=== PATIENT | female | born 1975 | race Caucasian/White ===

== ENCOUNTER 2024-12-15 11:53 | Emergency (ER) | payer BC, SELFPAY ==
[2024-12-15 11:54] VITALS: BMI 31.1
[2024-12-15 12:20] VITALS: BP 157/93; PULSE 92; RESP 18; TEMP 36.6; O2SAT 98; BMI 31.1
--- NOTE | 2024-12-15 12:25 | XR_ITS ---
Examination: CT brain head without contrast. 2-D sagittal coronal reconstructions Date and time of exam:December 15, 2024 1237 hours INDICATIONS: Generalized head pain dizziness facial numbness beginning today CTDI: vol (mGy):53.2 DLP: (mGycm):1098 Technique: Multiple CT axial sections of the brain have been obtained, 5 mm slice thickness. Contrast has not been administered. 2-D sagittal, coronal reconstructions have been obtained Low dose protocols were performed. One or more of the following dose reduction techniques were used; automated exposure control, adjustment of the mA and/or KV according to patient size, use of iterative reconstruction technique. Findings: No significant ventricular enlargement. Intra-axial or extra-axial hemorrhage density is not seen. No mass effect or midline shift Basal cisterns are not remarkable. Fourth ventricle is midline. Cranial vault intact. Impression: Negative for acute hemorrhage, mass effect or midline shift As clinically warranted, MRI brain without contrast follow-up would best assess for demyelinating disease, acute ischemic change
--- NOTE | 2024-12-15 12:26 | EKG_ITS ---
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
--- NOTE | 2024-12-15 12:26 | XR_ITS ---
Examination: PA lateral chest 2 views TECHNIQUE: Upright PA lateral chest 2 views Exam date and time: December 15, 2024 1257 hours INDICATIONS: Chest pain today FINDINGS: Normal heart size. No pneumonia or pulmonary edema. The osseous structures are intact IMPRESSION: No pneumonia or pulmonary edema
--- NOTE | 2024-12-15 12:26 | PD.EDRME ---
Rapid Medical Screening Exam RME Arrival date/time: 12/15/24 11:53 49-year-old female presents to the emergency department today for complaints of episode of being unable to speak patient reports currently she feels better Chief Complaint: General Adult/Misc Complain Vital signs: Vital Signs Temperature 97.8 F 12/15/24 12:20 Pulse Rate 92 12/15/24 12:20 Respiratory Rate 18 12/15/24 12:20 Blood Pressure 157/93 H 12/15/24 12:20 Pulse Oximetry (%) 98 12/15/24 12:20
[2024-12-15 12:56] LABS: Basophils % (Auto) 0 % (0-2.5); Eosinophils % (Auto) 0 % (0-10); Hematocrit 42.3 % (36.0-46.0); Hemoglobin 14.2 g/dL (12.0-16.0); Immature Granulocytes % (Auto) 1 % (0-0); Immature Granulocytes Auto 0.07 Thou/mm3 (0.00-0.00); Lymphocytes # (Auto) 0.9 Thou/mm3 (1.0-4.8); Lymphocytes % (Auto) 6 % (10-50); Mean Corpuscular HGB Conc 33.6 g/dl (31.0-37.0); Mean Corpuscular Hemoglobin 30.7 pg (25.0-35.0); Mean Corpuscular Volume 92 fL (80-100); Monocytes # (Auto) 0.3 Thou/mm3 (0.0-0.8); Monocytes % (Auto) 2 % (0-12); Neutrophils # (Auto) 14.2 Thou/mm3 (1.8-7.7); Neutrophils % (Auto) 92 % (37-80); Nucleated Red Blood Cell % 0 /100 WBC (0); Platelet Count 219 Thou/mm3 (140-440); RDW Standard Deviation 43.9 fL (36.4-46.3); Red Blood Count 4.62 Miln/mm3 (4.00-5.20); White Blood Count 15.5 Thou/mm3 (3.6-11.0)
[2024-12-15 13:23] LABS: Alanine Aminotransferase 13 U/L (10-49); Albumin/Globulin Ratio 1.9 (1.2-2.2); Alkaline Phosphatase 61 U/L (46-116); Anion Gap 11 (7-16); Aspartate Amino Transferase 23 U/L (0-34); BUN/Creatinine Ratio 22 Ratio (12-20); Bilirubin,Total 0.6 mg/dL (0.3-1.2); Blood Urea Nitrogen 20 mg/dL (9-23); Calcium 9.3 mg/dL (8.3-10.6); Calcium (Corrected) 9.3 mg/dL (8.5-10.1); Carbon Dioxide 21.4 mMol/L (20.0-31.0); Chloride 103 mMol/L (98-107); Creatinine (Component) 0.9 mg/dL (0.6-1.3); Estimated Creatinine Clearance 104.4 mL/min (>60); Globulin 2.7 gm/dL (2.3-3.5); Glucose 386 mg/dL (74-106); Osmolality,Calculated 288 (275-295); Potassium 4.9 mMol/L (3.4-5.1); Sodium 135 mMol/L (136-145); Total Protein 7.7 gm/dL (5.7-8.2); Troponin I < 0.002 ng/mL (0.0-0.045); eGFR > 60 See Note
[2024-12-15 16:14] LABS: HCG Qualitative,Urine Negative
[2024-12-15 16:29] VITALS: BP 147/84; PULSE 87; RESP 17; TEMP 36.7; O2SAT 96
--- NOTE | 2024-12-15 16:34 | PD.EDADULT ---
ED General RME/HPI General Chief complaint: General Adult/Misc Complain Stated complaint: UNABLE TO TALK AT WORK, TALKING NOW Arrival date/time: 12/15/24 11:53 Limitations: no limitations RME / HPI RME / HPI narrative: 12/15/24 11:53 49-year-old female presents to the emergency department today for complaints of episode of being unable to speak patient reports currently she feels better DR. FONTANEZ MAIN ED EVALUATION: 49 year old female with history of diabetes currently on Ozempic presents to the ED for evaluation of suddenly feeling hot, sweaty, light headed, and felt near syncope while at work today. Accompanied difficulty talking which has since resolved. Denies losing consciousness. Patient mentioned she had experienced similar symptoms several days ago, lasting only momentarily that resolved on its own. Patient additionally reports she has been on a strict diet eating only meats, eggs, and cheese. Does not feel she is drinking enough fluids. Patient denies fevers, chest pain, cough, shortness of breath, abdominal pain, nausea, vomiting, diarrhea, or urinary symptoms. Related Data Home Medications ?Medication ?Instructions ?Recorded ?Confirmed metformin 1,000 mg tablet PO QDAC #0 tabs 03/22/14 (Glucophage) rosuvastatin 5 mg tablet (Crestor) PO QDAY #0 tabs 03/22/14 Allergies Allergy/AdvReac Type Severity Reaction Status Date / Time No Known Allergies Allergy Verified 12/15/24 11:59 Review of Systems Review of Systems Narrative Review of Systems: GEN: No fever, no chills, no weight loss, +feeling hot and faint EYES: No discharge, no visual changes, no pain HEENT: No ear pain, no congestion, no sore throat PULM: No shortness of breath, no cough, no congestion CV: No chest pain, no dyspnea on exertion, no palpitations GI: No nausea, no vomiting, no diarrhea, no pain, no constipation : No frequency, no urgency, no dysuria MUSC/SKEL: No joint pain, no back pain SKIN: No rash NEURO: +suddenly had trouble with speech. No weakness, no headache Past Medical History Social History SMOKING STATUS: Never smoker ED Exam General Limitations: Present no limitations General appearance: Present alert, obese and other (Anxious) Head Head exam: Present atraumatic, normocephalic and normal inspection Eye Eye exam: Present PERRL, EOMI and other (mild exophthalmos) ENT ENT exam: Present normal exam, normal oropharynx and mucous membranes moist Neck Neck exam: Present normal inspection, full ROM and trachea midline Chest Chest inspection: Present normal inspection and symmetric chest wall rise Respiratory Respiratory exam: Present normal lung sounds bilaterally Cardiovascular Cardiovascular exam: Present regular rate, normal rhythm and normal heart sounds Abdominal Exam Abdominal exam: Present soft and normal bowel sounds Extremities Exam Extremities exam: Present normal inspection and full ROM Back Exam Back exam: Present normal inspection and full ROM Neurological Exam Neurological exam: Present alert, oriented X3 and CN II-XII intact Psychiatric Psychiatric exam: Present normal affect and normal mood Skin Skin exam: Present warm, dry, intact and normal color Course Quality Measures none Orders Category Date Time Status EKG (ED ONLY) *Do not use* NOW Care 12/15/24 12:[address] head/brain wo con Stat Exams 12/15/24 12:25 Completed EKG (ED Only) Stat Exams 12/15/24 12:26 Draft XR chest 2V Stat Exams 12/15/24 12:26 Completed CBC Stat Lab 12/15/24 12:38 Completed Comprehensive Metabolic Panel Stat Lab 12/15/24 12:38 Completed HCG Qualitative,Urine Stat Lab 12/15/24 12:26 Completed Troponin I Stat Lab 12/15/24 12:38 Completed Insulin Regular Med 12/15/24 16:49 Discontinued 12 unit SC X1 ONE Vital Signs Vital signs: Vital Signs Temperature 97.8 F 12/15/24 12:20 Pulse Rate 92 12/15/24 12:20 Respiratory Rate 18 12/15/24 12:20 Blood Pressure 157/93 H 12/15/24 12:20 Pulse Oximetry (%) 98 12/15/24 12:20 Pulse ox is 98% on room air which is adequate. [facility] Patient data External records reviewed:: [facility] previous records Clinical information provided by:: patient Social determinants that could affect healthcare access:: none Patient has the following chronic illnesses:: DM How is presenting disease/condition affected by chronic disease/condition?: exacerbated by Evaluation data The following diagnostics were reviewed and interpreted by me:: lab results, radiology exam(s) and EKG tracing(s) (NSR, hr 88, LAD, poor R-wave progression ) Lab and/or radiology exams considered but not ordered:: None Interpretation Summary: Ordering Physician: Hubert Javed NP, NP Date of Service: 12/15/24 Procedure(s): CT head/brain wo con Accession Number(s): [id number] cc: Hubert Javed NP, NP; Jarocho Lorenzo MD; Caludine Lopez MD~ Examination: CT brain head without contrast. 2-D sagittal coronal reconstructions Date and time of exam:December 15, 2024 1237 hours INDICATIONS: Generalized head pain dizziness facial numbness beginning today CTDI: vol (mGy):53.2 DLP: (mGycm):1098 Technique: Multiple CT axial sections of the brain have been obtained, 5 mm slice thickness. Contrast has not been administered. 2-D sagittal, coronal reconstructions have been obtained Low dose protocols were performed. One or more of the following dose reduction techniques were used; automated exposure control, adjustment of the mA and/or KV according to patient size, use of iterative reconstruction technique. Findings: No significant ventricular enlargement. Intra-axial or extra-axial hemorrhage density is not seen. No mass effect or midline shift Basal cisterns are not remarkable. Fourth ventricle is midline. Cranial vault intact. Impression: Negative for acute hemorrhage, mass effect or midline shift As clinically warranted, MRI brain without contrast follow-up would best assess for demyelinating disease, acute ischemic change Dictated By: Jarocho Lorenzo MD Signed By: <Electronically signed by Jarocho Lorenzo MD in [place]> 12/15/24 1311 Ordering Physician: Hubert Javed NP, NP Date of Service: 12/15/24 Procedure(s): XR chest 2V Accession Number(s): [id number] cc: Hubert Javed NP, NP; Jarocho Lorenzo MD; Claudine Lopez MD~ Examination: PA lateral chest 2 views TECHNIQUE: Upright PA lateral chest 2 views Exam date and time: December 15, 2024 1257 hours INDICATIONS: Chest pain today FINDINGS: Normal heart size. No pneumonia or pulmonary edema. The osseous structures are intact IMPRESSION: No pneumonia or pulmonary edema Dictated By: Jarocho Lorenzo MD Signed By: <Electronically signed by Jarocho Lorenzo MD in [place]> 12/15/24 1308 Medications Medications considered but not ordered:: None Medication administrations:: Medication Administration History Discontinued Medications Insulin Human Regular (Insulin Hum Regular 1 Unit/0.01 Ml (Per Unit)) 12 unit SC X1 ONE Stop: 12/15/24 16:50 Last Admin: 12/15/24 17:07 Dose: 12 unit Documented By: [facility] Co-signed By: RD See above Consultations Consultation(s) initiated? (list below): No Diagnosis Differential Diagnosis ED Complaint MDM: Dehydration, hyperglycemia, syncope, viral illness, ICH Most likely diagnosis given after review of the tests above:: Dehydration near syncope medication noncompliance Admission Indicated Admission indicated?: not indicated Explain why admission is indicated or not indicated:: Patient does not meet admission criteria Admission Request Was there a request for admission?: No Disposition Plan Disposition Plan: Discharge Discharge Attestation Discharge Attestation: The patient and all family members were given an opportunity to ask questions and understood the discharge instructions. Discharge instructions specifically effects, indications for sooner follow up or return to the emergency department, and the expected course of current diagnosis. Patient condition: Stable Medical Decision Making MDM Narrative MDM Narrative: 49 year old female with a history of diabetes, currently on Ozempic, presenting to the ED with complaints of sudden onset of feeling hot, sweaty, lightheaded, and near syncope while at work. She also experienced difficulty talking, which has since resolved. The patient denies loss of consciousness. Similar symptoms occurred several days ago but resolved spontaneously. She has been adhering to a strict diet consisting of meats, eggs, and cheese, and reports insufficient fluid intake. The clinical presentation is concerning for dehydration, potentially exacerbated by the patient's limited fluid intake and restrictive diet, which may also contribute to her hypoglycemia or electrolyte imbalance. Given the patient's history of diabetes and current use of Ozempic, the possibility of a hypoglycemic episode or dehydration-related symptoms needs to be considered. However, the absence of fever, chest pain, cough, shortness of breath, abdominal symptoms, and urinary complaints makes acute infections or other systemic causes less likely. Plan for Ozempic dose adjustment and follow up with PCP for further management. Differential Diagnosis Differential Diagnosis: Dehydration, hyperglycemia, syncope, viral illness, ICH Lab Data 12/15/24 12:38 12/15/24 12:38 Labs: Lab Results 12/15/24 12/15/24 Range/Units 12:26 12:38 WBC 15.5 H (3.6-11.0) Thou/mm3 RBC 4.62 (4.00-5.20) Miln/mm3 Hgb 14.2 (12.0-16.0) g/dL Hct 42.3 (36.0-46.0) % MCV 92 (80-100) fL MCH 30.7 (25.0-35.0) pg MCHC 33.6 (31.0-37.0) g/dl RDW Std Deviation 43.9 (36.4-46.3) fL Plt Count 219 (140-440) Thou/mm3 Neut % (Auto) 92 H (37-80) % Lymph % (Auto) 6 L (10-50) % [place] % (Auto) 2 (0-12) % Eos % (Auto) 0 (0-10) % Baso % (Auto) 0 (0-2.5) % Neut # (Auto) 14.2 H (1.8-7.7) Thou/mm3 Lymph # (Auto) 0.9 L (1.0-4.8) Thou/mm3 [place] # (Auto) 0.3 (0.0-0.8) Thou/mm3 Eos # (Auto) 0.0 (0.0-0.5) Thou/mm3 Baso # (Auto) 0.0 (0.0-0.2) Thou/mm3 Immature Gran # (Auto) 0.07 H (0.00-0.00) Thou/mm3 Absolute Nucleated RBC 0.00 (0.00-0.00) Thou/mm3 Immature Gran % 1 H (0-0) % Nucleated RBC % 0 (0) /100 WBC Sodium 135 L (136-145) mMol/L Potassium 4.9 (3.4-5.1) mMol/L Chloride 103 (98-107) mMol/L Carbon Dioxide 21.4 (20.0-31.0) mMol/L Anion Gap 11 (7-16) BUN 20 (9-23) mg/dL Creatinine 0.9 (0.6-1.3) mg/dL Estim Creat Clear Calc 104.4 (>60) mL/min eGFR > 60 (60 - ) See Note BUN/Creatinine Ratio 22 H (12-20) Ratio Glucose 386 H (74-106) mg/dL Calculated Osmolality 288 (275-295) Calcium 9.3 (8.3-10.6) mg/dL Corrected Calcium 9.3 (8.5-10.1) mg/dL Total Bilirubin 0.6 (0.3-1.2) mg/dL AST 23 (0-34) U/L ALT 13 (10-49) U/L Alkaline Phosphatase 61 (46-116) U/L Troponin I < 0.002 (0.0-0.045) ng/mL Total Protein 7.7 (5.7-8.2) gm/dL Albumin 5.0 (3.5-5.0) gm/dL Globulin 2.7 (2.3-3.5) gm/dL Albumin/Globulin Ratio 1.9 (1.2-2.2) Urine HCG, Qual Negative Discharge Plan Plan Patient Disposition: HOME (Self Care) Prescriptions/Referrals Prescriptions/Med Rec: No Action metformin [Glucophage] 1,000 MG tablet PO QDAC Qty: 0 rosuvastatin [Crestor] 5 MG tablet PO QDAY Qty: 0 Referrals: Claudine Lopez MD [Primary Care Provider] - In 1 week Problem List Clinical Impression: Near syncope, Dehydration, Noncompliance with medications Patient/Caregiver Discharge Instructions Education Materials: ED Dehydration (Adult), ED Dizziness or Syncope ... Additional Instructions: Follow up with your doctor regarding your Ozempic dosage. Continue your Ozempic, take 0.25mg today and 0.25mg tomorrow. Increase your water intake. Print Language: Chinese Stand Alone Forms: Arianne Award Info., Patient Portal Info Letter
[2024-12-15] MEDS: INSULIN HUM REGULAR 1 UNIT/0.01 ML (PER UNIT) 12 UNIT SC (17:07)
== END 2024-12-15 17:17 | disposition home or self-care (01) ==
PROVIDERS: Nurse Practitioner Primary Care; Emergency Provider Family Medicine; PCP Family Medicine
DX: E86.0 Dehydration (principal); Z91.148 Patient's other noncompliance with medication regimen for other reason; R55 Syncope and collapse; R07.9 Chest pain, unspecified; R51.9 Headache, unspecified; R42 Dizziness and giddiness; R20.0 Anesthesia of skin; R94.31 Abnormal electrocardiogram [ECG] [EKG]
CPT/HCPCS: 36415; 70450; 71046; 80053; 81025; 84484; 85025; 93005; 99284; J1815